=== PATIENT | male | born 1995 | race Caucasian/White ===

== ENCOUNTER 2019-12-05 11:22 | Emergency (ER) | payer OTHER ==
[~2019-12-05] VITALS: Ht 157.5 cm; Wt 74.8 kg
[2019-12-05] MEDS ORDERED: ADVIL100 M1 PO (12:33)
[2019-12-05] MEDS ORDERED: ULTRAM50 MG PO (12:33)
[2019-12-05] MEDS ORDERED: PROCTOSOL (12:33)
== END 2019-12-05 15:40 | disposition home or self-care (01) ==
LOC: ER 11:22
DX: K64.4 Residual hemorrhoidal skin tags (principal)